=== PATIENT | male | born 1960 | race Caucasian/White ===

== ENCOUNTER 2019-03-08 10:48 | Day surgery (SDC) | payer OTHER ==
[2019-03-07 17:27] VITALS: BMI 36.5
[2019-03-08] MEDS ORDERED: ONDANSETRON 4 MG/2 ML VIAL IVPUSH PRN (12:48)
[2019-03-08] MEDS ORDERED: PROPOFOL 20 ML ONE (12:53)
[2019-03-08] MEDS ORDERED: MIDAZOLAM HCL 2 MG/2 ML SINGLE DOSE VIAL ONE (12:53)
[2019-03-08] MEDS ORDERED: LACTATED RINGERS SOLUTION 1,000 ML IV SCH (13:00)
[2019-03-08] MEDS ORDERED: ceFAZolin SODIUM 1 GM VIAL IVPB ONE (13:08)
[2019-03-08] MEDS ORDERED: BUPIVACAINE HCL/PF 0.25% (2.5MG/ML) 10 ML VIAL ONE (13:17)
[2019-03-08] MEDS ORDERED: BUPIVACAINE HCL/PF 0.25% (2.5MG/ML) 10 ML VIAL IJ ONE (13:19)
[2019-03-08] MEDS ORDERED: ACETAMINOPHEN 325 MG TABLET (FP) PO PRN ×2 (13:37→14:11)
--- NOTE | 2019-03-08 13:43 | HP ---
DATE OF ADMISSION: 03/08/2019 DATE OF DICTATION: 03/08/2019 HISTORY: Patient is a 58-year-old male with a history of left hemiscrotal swelling of 3 years' duration. This has increased in size and tenderness. Patient denies any trauma. He states that he did have a biopsy of his testicle 3 years earlier, and subsequent to that, he developed a swelling of the left hemiscrotum. Patient was seen in the office, and there was positive transillumination indicative of a left hydrocele. He has had several aspirations in the past, but the hydrocele has recurred. He denies any voiding symptoms. He does have a history of dyslipidemia as well as prostatism. He takes Lipitor and Flomax. He denies any other surgical history. Denies diabetes or hypertension. He denies ethanol, tobacco. He denies any allergies. PHYSICAL EXAMINATION: General: Reveals a well-developed, adult male in no apparent distress. Abdomen: Soft. No CVA tenderness is elicited. Genitourinary: Reveals tense left hydrocele. Phallus is normal. Prostate is 2+, smooth, benign, nontender. Extremities: Reveal full range of motion with no clubbing, cyanosis, or edema. Tumor markers including hCG and alpha-fetoprotein were normal. IMPRESSION: Left hydrocele. PLAN: Left hydrocelectomy. Loraine SUMNER/[id number]
--- NOTE | 2019-03-08 13:45 | OP ---
Operative Note - Note: Operative Date: 03/08/19 Pre-Operative Diagnosis: lt. hydrocele Operation: lt. hydrocelectomy Post-Operative Diagnosis: Same as Pre-op Lime Trimmer: Carolina Pierre Anesthesia: General Specimens Removed: hydrocele sac Estimated Blood Loss (mls): 10 Drains & Tubes with Location: 1/2 inch brittanie Drains, Volume Out (mls): 0 Blood Volume Replaced (mls): 0 Fluid Volume Replaced (mls): 0 Operative Report Dictated: Yes
[2019-03-08] MEDS ORDERED: oxyCODONE HCL 5 MG TABLET PO PRN (14:11)
--- NOTE | 2019-03-08 15:43 | OP ---
DATE OF OPERATION: 03/08/2019 PREOPERATIVE DIAGNOSIS: Left tense hydrocele. POSTOPERATIVE DIAGNOSIS: Left tense hydrocele. OPERATIVE PROCEDURE: Left hydrocelectomy. ANESTHESIA: General. DESCRIPTION OF PROCEDURE: Under above-stated anesthesia, patient is prepped and draped in the usual sterile manner, placed in the supine position. A vertical, left hemiscrotal incision is made. This is carried down through skin and subcutaneous tissue. Tunica vaginalis was isolated and opened. Approximately 80 mL of straw-colored fluid was drained. The testicle was brought out. Excess tunica was excised and sent to Pathology. Edges of the tunica were then cauterized for hemostasis. The tunica was then sutured on itself in a bottle fashion using 3-0 running Vicryl suture ligatures. No active bleeding was noted. The testicle was placed back in the left hemiscrotum. A 1/4-inch Arleth was placed in the left hemiscrotum and brought out through a separate stab wound incision. The wound was irrigated and then closed with 3-0 Vicryl suture ligatures and 4-0 mattress suture ligatures. Pressure dressing was applied. Patient tolerated procedure well. He returned to the recovery room in good condition. Loraine [id number]
[2019-03-08 15:49] VITALS: PULSE 60
[2019-03-08 16:39] VITALS: TEMP 98.3
[2019-03-08 16:51] VITALS: BP 140/85
--- NOTE | 2019-03-12 16:58 | PATH ---
Surgical Pathology Report Patient Name: CLEMENTE MUNOZ [facility]. Rec. #: [id number] /Age/Gender: 1960 (Age: 58) / M Account: [id number] Location: [facility] SUR[facility]ICAL Taken: 03/08/2019 Received: 03/11/2019 Reported: 03/12/2019 Physicians: Carolina Pierre M.D. Specimen(s) Received LEFT HYDROCELE SAC Clinical History Left hydrocele Final Diagnosis HYDROCELE SAC, LEFT, HYDROCELECTOMY: HYDROCELE SAC. Electronically Signed Kristi Ortiz M.D. Gross Description Received in formalin labeled "hydrocele sac-left" is an irregular piece of white-nair fibromembranous tissue measuring 3 x 1 x 0.7 cm. The specimen is serially sectioned and entirely submitted in one cassette.
== END 2019-03-08 16:20 | disposition home or self-care (01) ==
LOC: JASU-SURG 10:48
PROVIDERS: ATTEND Urology
PROC: 0VB70ZZ Excision of Left Tunica Vaginalis, Open Approach (ICD-10-PCS; principal; 2019-03-08 12:30)
DX: N43.2 Other hydrocele (principal)
CPT/HCPCS: 88302-TC; 94760